=== PATIENT | male | born 1970 | race Two or more races ===

== ENCOUNTER 2018-01-18 19:02 | Emergency (ER) | payer BC, OTHER ==
--- NOTE | 2018-01-18 20:27 | ED Physician Chart ---
ED Chief Complaint/HPI - Patient Information Date Seen:: 01/18/18 Time Seen:: 19:00 Chief Complaint:: FB Exposure History of Present Illness:: pt exposed to concrete pieces to both eyes while at work one hour ago; pt developed bilateral eye redness; pt denies trauma, LOC, ALOC, AMS, eye pain, decreased vision, visual changes, FB sensation of eyes, eye discharge, gait changes, H/As, neck pain, weakness, dizziness, paresthesias, vertigo, cough, C/P , SOB,n Abd. Pain, A/N/V/D/C, fever, chills, or urinary s/s; pt's last tetanus shot: > 5 years Allergies:: Allergies Allergy/AdvReac Type Severity Reaction Status Date / Time No Known Allergies Allergy Verified 01/18/18 19:09 Vitals:: Vital Signs - 8 hr 01/18/18 01/18/18 19:05 19:59 Temp 97.8 F 98.1 F HR 63 67 RR 18 18 BP 143/98 O2 Sat % 96 97 Historian:: Patient, Family Member Review:: Nurse's Note Reviewed ED Review of Systems - Review of Systems General/Constitutional: No fever, No chills, No weight loss, No weakness, No diaphoresis, No edema, No loss of appetite Skin: No skin lesions, No rash, No bruising Head: No headache, No light-headedness Eyes: No loss of vision, No pain, No diplopia ENT: No earache, No nasal drainage, No sore throat, No tinnitus Neck: No neck pain, No swelling, No thyromegaly, No stiffness, No mass noted Cardio Vascular: No chest pain, No palpitations, No PND, No orthopnea, No edema Pulmonary: No SOB, No cough, No sputum, No wheezing GI: No nausea, No vomiting, No diarrhea, No pain, No melena, No hematochezia, No constipation, No hematemesis G/U: No dysuria, No frequency, No hematuria, No nacturia Musculoskeletal: No bone or joint pain, No back pain, No muscle pain Endocrine: No polyuria, No polydipsia Psychiatric: No prior psych history, No depression, No anxiety, No suicidal ideation, No homicidal ideation, No auditory hallucination, No visual hallucination Hematopoietic: No bruising, No lymphadenopathy Allergic/Immuno: No urticaria, No angioedema Neurological: No syncope, No focal symptoms, No weakness, No paresthesia, No headache, No seizure, No dizziness, No confusion, No vertigo ED Past Medical History - Past Medical History Obtainable: Yes Past Medical History: No significant medical hx Family History: None Social History: Non Smoker, No Alcohol, No Drug Use, , Employed Surgical History: None Psychiatricy History: None Medication: Reviewed Family Medical History - Family Member Mother History Unknown: Yes ED Physical Exam - Physical Examination General/Constitutional: Awake, Well-developed, well-nourished, Alert, No distress, GCS 15, Non-toxic appearing, Ambulatory Head: Atraumatic Eyes: Lids, conjuctiva normal, PERRL, EOMI Other Eyes comments:: Va: 20/20 OU; + Conjunctival FBs; + Bilateral Conjunctival Injection; Corneas: clear; no corneal FBs or abrasions; PERRLA; Fundi: benign; IOP: 16 OU; LLL: WNL ; no periorbital cellulitis; EOMs: WNL; no conjunctival FBs after ocular irrigation of both eyes Skin: Nl inspection, No rash, No skin lesions, No ecchymosis, Well hydrated, No lymphadenopathy ENMT: External ears, nose nl, TM canals nl, Nasal exam nl, Lips, teeth, gums nl , Oropharynx nl, Tonsils nl Other ENMT comments:: TMJs: WNL Neck: Nontender, Full ROM w/o pain, No JVD, No nuchal rigidity, No bruit, No mass, No stridor Other Neck comments:: supple; no meningeal signs; no cervical tenderness; no bruits Respiratory: Nl effort/Exclusion, Clear to Auscultation, No Wheeze/Rhonchi/Rales Cardio Vascular: RRR, No murmur, gallop, rubs, NL S1 S2, Carotid/Femoral/Distal pulses equal bilaterally GI: No tenderness/rebounding/guarding, No organomegaly, No hernia, Normal BS's, Nondistended, No mass/bruits, No McBurney tenderness Other GI comments:: no pulsatile masses : No CVA tenderness Extremities: No tenderness or effusion, Full ROM, normal strength in all extremities, No edema, Normal digits & nails Neuro/Psych: Alert/oriented, DTR's symmetric, Normal sensory exam, Normal motor strength, Judgement/insight normal, Mood normal, Normal gait, No focal deficits Other Neuro/Psych comments:: no focal signs Misc: Normal back, No paraspinal tenderness ED Assessment Prep/Irrigation:: Irrigation of both eyes with 1 Liter of Normal Saline OU with complete removal of all ocular FBs Inspection: FB removed Comments:: pt tolerated procedure well; pt is asymptomatic upon discharge ED Septic Shock - . Is Septic Shock (SBP<90, OR Lactate>4 mmol\L) present?: No - <6hrs of presentation: Vital Signs: Vital Signs - 8 hr 01/18/18 01/18/18 19:05 19:59 Temp 97.8 F 98.1 F HR 63 67 RR 18 18 BP 143/98 O2 Sat % 96 97 ED Reassessment (Disposition) - Reassessment Reassessment:: pt is asymptomatic upon discharge Reassessment Condition:: Improved - Diagnosis Diagnosis:: Ocular FB Exposure; Ocular/Eye Foreign Bodies; Eye/Head Injury; Removal of Eye FBs; Conjunctivitis - Aftercare/Follow up Instructions Aftercare/Follow-Up Instructions:: Counseled pt regarding lab results/diagnosis & need follow up, Refer to Discharge Instructions, Counseled pt & family regarding lab results/diagnosis & need follow up Medication Prescribed:: Rx: Tobramycin Ophthalmic Eye Drops: one drop OU qid x 7 days; Eye Care Instructions - Patient Disposition Discharge/Transfer:: Home Condition at Disposition:: Stable, Improved (RTER prn if existing s/s reoccur and/or get worse and/or any other new s/s occur; ACIs given for all above Dx; Refer to [employer] [facility]; F/U with PMD in one day or prn; RTER prn if concerned)
== END 2018-01-18 20:10 | disposition home or self-care (01) ==
LOC: ER 19:02
DX: T15.92XA Foreign body on external eye, part unspecified, left eye, initial encounter (principal); T15.91XA Foreign body on external eye, part unspecified, right eye, initial encounter; S09.90XA Unspecified injury of head, initial encounter; H10.9 Unspecified conjunctivitis; X58.XXXA Exposure to other specified factors, initial encounter; Y93.89 Activity, other specified; Y92.89 Other specified places as the place of occurrence of the external cause; Y99.0 Civilian activity done for income or pay
CPT/HCPCS: J7030; Z7502